=== PATIENT | female | born 1940 | race Caucasian/White ===

== ENCOUNTER → 2021-10-24 10:25 | Outpatient (CLI) | payer MEDICARE, OTHER, SELFPAY ==
[2021-10-24 10:56] LABS: Appearance Urine UA SL CLOUDY; Bilirubin Urine UA NEGATIVE (NEGATIVE); Color Urine UA YELLOW; Glucose Urine UA NEGATIVE (Negative); Ketones Urine UA NEGATIVE (NEGATIVE); Leukocyte Esterase Urine UA 1+ (NEGATIVE); Nitrite Urine UA NEGATIVE (Negative); Occult Blood Urine UA TRACE-INTACT (Negative); Protein Urine UA 1+ (Negative); Specific Gravity Urine UA 1.015 (1.000-1.035); Urobilinogen Urine UA 0.2 E.U./dL (0.2)
[2021-10-24 11:56] LABS: Bacteria Urine Many (>30); Culture Indicated Urine Specimen Cultured; RBC Urine 1-5/HPF (0-5/HPF); Squamous Epithelial Cell Urine 1-5 /HPF (0-5/HPF); WBC Urine 30-100/HPF (0-5/HPF)
== END ==
PROVIDERS: Obstetrics & Gynecology; PCP Family Medicine; Referring Provider Specialist; Visit Provider Specialist
DX: N39.0 Urinary tract infection, site not specified (principal)
CPT/HCPCS: 81003; 81015; 87077; 87086; 87186

== ENCOUNTER → 2022-01-18 12:04 | Outpatient (CLI) | payer MEDICARE, OTHER, SELFPAY ==
[2022-01-18 12:51] LABS: Bilirubin Urine UA NEGATIVE (NEGATIVE); Color Urine UA YELLOW; Glucose Urine UA NEGATIVE (Negative); Ketones Urine UA TRACE (NEGATIVE); Leukocyte Esterase Urine UA 1+ (NEGATIVE); Nitrite Urine UA NEGATIVE (Negative); Occult Blood Urine UA 1+ (Negative); Protein Urine UA NEGATIVE (Negative); Urobilinogen Urine UA 0.2 E.U./dL (0.2)
[2022-01-18 12:59] LABS: Appearance Urine UA Slightly Cloudy; RBC Urine 1-5/HPF (0-5/HPF); Squamous Epithelial Cell Urine 1-5 /HPF (0-5/HPF); WBC Urine 10-30/HPF (0-5/HPF); pH Urine UA 5.5 (4.5-8.0)
[2022-01-18 13:00] LABS: Amorphous Sediment Urine 1+; Bacteria Urine Many (>30); Mucus Urine 1+ (Negative)
== END ==
PROVIDERS: PCP Family Medicine; Visit Provider Obstetrics & Gynecology
DX: N36.2 Urethral caruncle (principal); R30.9 Painful micturition, unspecified
CPT/HCPCS: 81001; 87077; 87086; 87186

== ENCOUNTER → 2022-04-16 10:39 | Outpatient (CLI) | payer MEDICARE, OTHER, SELFPAY | PROVIDERS: PCP Family Medicine; Visit Provider Specialist | DX: R30.0 Dysuria (principal) | CPT/HCPCS: 87077; 87086; 87186 ==

== ENCOUNTER → 2022-04-24 15:48 | Outpatient (CLI) | payer MEDICARE, OTHER, SELFPAY ==
[2022-04-24 16:30] LABS: Appearance Urine UA CLEAR; Bilirubin Urine UA NEGATIVE (NEGATIVE); Color Urine UA YELLOW; Glucose Urine UA NEGATIVE (Negative); Ketones Urine UA NEGATIVE (NEGATIVE); Leukocyte Esterase Urine UA 2+ (NEGATIVE); Nitrite Urine UA NEGATIVE (Negative); Occult Blood Urine UA NEGATIVE (Negative); Protein Urine UA TRACE (Negative); Urobilinogen Urine UA 0.2 E.U./dL (0.2)
[2022-04-24 16:43] LABS: Bacteria Urine Many (>30); Culture Indicated Urine Specimen Cultured; RBC Urine None Seen (0-5/HPF); Squamous Epithelial Cell Urine 10-30 /HPF (0-5/HPF); WBC Urine 5-10/HPF (0-5/HPF)
== END ==
PROVIDERS: PCP Family Medicine; Referring Provider Specialist; Visit Provider Specialist
DX: N39.0 Urinary tract infection, site not specified (principal)
CPT/HCPCS: 81001; 87086

== ENCOUNTER → 2022-10-30 14:45 | Outpatient (CLI) | payer MEDICARE, OTHER, SELFPAY ==
--- NOTE | 2022-10-30 14:46 | DI.RAD.S_ITS ---
PROCEDURE: XR LUMBAR SPINE MIN 4V INDICATIONS: low back pain TECHNIQUE: 5 views of the lumbar spine were acquired, including bilateral oblique views. COMPARISON: None. FINDINGS: Suboptimal evaluation due to body habitus and bowel gas. Bones: 5 nonrib-bearing vertebrae are present. Convex right rotoscoliosis, Cox angle of 50?. Suspect grade 1 anterolisthesis of L5 on S1. Moderate disc height loss at all levels, and extensive facet arthrosis. Soft tissues: Overlying bowel gas pattern is normal. No suspicious soft tissue calcifications. Oblique images: No pars defects. IMPRESSION: Suboptimal evaluation due to body habitus and bowel gas. Severe right scoliosis. Moderate disc height loss and severe facet arthrosis at all levels. Dictated by: Nirav Michael M.D. on 10/30/2022 at 17:09 Approved by: Nirav Michael M.D. on 10/30/2022 at 17:10
== END ==
PROVIDERS: PCP Family Medicine; Referring Provider Anesthesiology; Visit Provider Anesthesiology
DX: M47.816 Spondylosis without myelopathy or radiculopathy, lumbar region (principal); M41.9 Scoliosis, unspecified; M16.0 Bilateral primary osteoarthritis of hip; M54.50 Low back pain, unspecified; M25.552 Pain in left hip; G89.29 Other chronic pain
CPT/HCPCS: 72110; 99214

== ENCOUNTER → 2022-11-19 12:59 | Outpatient (CLI) | payer MEDICARE, OTHER, SELFPAY ==
--- NOTE | 2022-11-19 13:01 | DI.MRI.S_ITS ---
PROCEDURE: MR LUMBAR SPINE WO CON INDICATIONS: Chronic LBP with radiculopathy TECHNIQUE: Noncontrast sagittal T1 spin echo and T2 fast echo, sagittal STIR, and T2 fast spin echo through the lumbar spine. In cases with scoliosis, additional coronal T2 fast spin echo may be performed. COMPARISON: None. FINDINGS: Image quality: Excellent. Alignment and Curvature: Severe dextroscoliosis of the lumbar spine with the right apex at L3 and a Cox angle of 52 degrees is seen with compensatory levoscoliosis of the thoracic spine with a Cox angle of 24 degrees. Bone Marrow: Marrow is of normal overall signal. No acute vertebral body compression fractures. Spinal Cord: Conus medullaris terminates at the L1 level. Visualized cord demonstrates normal signal and size. Paraspinous Soft Tissues: No paravertebral masses. Multilevel diffuse disc bulges with disc osteophytes causing foraminal stenosis at multiple levels is seen but is difficult to accurately evaluate given the degree of scoliosis. There is no significant central canal stenosis. The visualized cord has no abnormal signal. IMPRESSION: 1. No acute abnormality. No compression fracture. 2. No significant central canal stenosis. 3. No abnormal cord signal of the visualized cord. 4. Multilevel diffuse disc bulges with endplate degenerative changes worst at L2-3. Dictated by: Britton Fam M.D. on 11/19/2022 at 15:01 Approved by: Britton Fam M.D. on 11/19/2022 at 15:10
== END ==
PROVIDERS: PCP Family Medicine; Referring Provider Anesthesiology; Visit Provider Anesthesiology
DX: M51.16 Intervertebral disc disorders with radiculopathy, lumbar region; M47.26 Other spondylosis with radiculopathy, lumbar region
CPT/HCPCS: 72148

== ENCOUNTER 2022-11-27 08:27 | Outpatient (CLI) | payer MEDICARE, OTHER, SELFPAY ==
[2022-11-27] VITALS (7 sets, daily range): BP systolic 158–177; BP diastolic 75–97; PULSE 62–65; RESP 18–24; TEMP 36.4; O2SAT 97–99
--- NOTE | 2022-11-27 08:28 | DI.RAD.S_ITS ---
PROCEDURE: PAIN L/S FACET INJ/BLK 1ST GIANCARLO COMPARISON: [facility], CR, XR LUMBAR SPINE MIN 4V, 10/30/2022, 14:53. [facility], MR, MR LUMBAR SPINE WO CON, 11/19/2022, 13:32. INDICATIONS: SPONDYLOSIS FINDINGS: Fluoroscopic spot filming was performed to verify placement of spinal needles on both sides at the L2, L3, and L4 levels, as labeled on the films. Appropriate location of the needle tips was confirmed by injection of iodinated contrast. IMPRESSION: Intraprocedural examination demonstrating appropriate positions of the needles. Dictated by: Curt Fenton M.D. on 11/27/2022 at 12:17 Approved by: Curt Fenton M.D. on 11/27/2022 at 12:18
[2022-11-27] MEDS: IOPAMIDOL 15 ML VIAL 3 ML INJ (08:57)
[2022-11-27] MEDS: BUPIVACAINE 0.5% (PF) 10 ML VIAL 5 ML INJ (08:58)
--- NOTE | 2022-11-27 13:55 | P.PCN_ITS ---
Date/Time/Diagnoses Date of procedure: 11/27/22 Time of procedure: 09:00 Procedure Notes Physician: Regan Wolf Total Fluoroscopy time (seconds): 33 Total sedation minutes: 0 Procedure in detail & Post-procedure care: Bilateral L2, 3, 4 Lumbar Medial Branch Blocks Indications: Vicki is presenting for treatment of lumbar spondylosis with low back pain. Preoperative diagnosis: Bilateral lumbar spondylosis Postoperative diagnosis: Same Pre-procedure History: Patient demonstrates today moderate to severe non- radicular back pain without neurologic deficit aggravated by hyperextension yes Back pain greater than leg pain? yes Patient today has tenderness over the suspected joint(s) yes History of post-traumatic injury? no Hypertrophic arthropathy yes Back pain associated with suspected motion segment instability, hypermobility or pseudoarthrosis no F Pre-testing pain score (VAS): 7/10 Focused Examination: Ax3 Mood and affect are normal Vital Signs: VSS Consent: Following review of allergies and potential side effects/complications, including, but not necessarily limited to, infection, allergic reaction, local tissue breakdown, stroke, temporary or permanent nerve injury, paralysis, and possible , the patient indicated that they understood and agreed to proceed.? An informed consent document was signed by the patient, witnessed by a nurse and placed in the patient's chart.? Additionally, other treatment options including medications and physical therapy were reviewed with the patient. All questions were answered. Site was then marked. Anesthesia: Local Position: Prone Monitoring: NIBP, Pulse oximetry, 3 lead EKG Needle used: 22G 3.5 inch spinal needle Contrast: Isovue 300M Injectate: 0.5% bupivacaine 1 mL per site Procedure: The patient was brought into the procedure room and positioned into the prone position. Skin was prepped with a Chloraprep solution, allowed to air dry, and then draped in sterile fashion.? The right L3-4 and L4-5 facet joints were visually identified with fluoroscopy. Lidocaine 1% was used to anesthetize the skin over each target destination with a 25ga needle. A 25 ga, 3.5 inch spinal needle was advanced to the location of the medial branch at the junction of the superior articular process and the transverse process at right L2, 3, 4 using intermittent fluoroscopy in the AP view. Isovue 300M contrast 0.2ml was injected at each level outlining the medial borders for each level in the AP and lateral views. There was no evidence of vascular or intrathecal uptake. The above injectate was slowly injected at each target destination. The left L3-4 and L4-5 facet joints were visually identified with fluoroscopy. Lidocaine 1% was used to anesthetize the skin over each target destination with a 25ga needle. A 22 ga, 3.5 inch spinal needle was advanced to the location of the medial branch at the junction of the superior articular process and the transverse process at left L2, 3, 4 using intermittent fluoroscopy in the AP view. Isovue 300M contrast 0.2ml was injected at each level outlining the medial borders for each level in the AP and lateral views. There was no evidence of vascular or intrathecal uptake. The above injectate was slowly injected at each target destination. At the end of the procedure the needles were withdrawn and Band-Aids were applied for a dressing. At the end of the procedure the needles were withdrawn and Band-Aids were applied for a dressing. Post Procedure: Patient was taken to the recovery and monitored. The patient was provided a Pain Log to continue to record the patient's response to the target- specific procedure prior to the patient's follow-up visit with the referring physician. Patient was stable upon discharge. Detailed post procedure instructions were provided. Patient was asked to call in the event of worsening pain, fever, weakness, numbness or bladder or bowel incontinence. Postoperatively, today patient demonstrates the following changes with hypere xtension and with tenderness over the suspected joint(s). Provacative testing using the Ellis's facet loading test Right side Left side Directly before the block ?VAS (0-10) = 7/10 VAS (0-10) = 7/10 5 minutes after the block VAS (0-10) = 0/10 VAS (0-10) = 0/10 Percentage relief obtained with this diagnostic block 100 % 100 % Any improved physical functioning directly after the blocks? Range of motion Based on the medial branches blocked today, if the patient meets insurance criteria for radiofrequency, the treatment should result in the denervation of the bilateral L3-4 and L4-5 facet joint nerves. We would expect to denervate a total of 4 facets during the radiofrequency ablation.
== END 2022-11-27 09:25 | disposition home or self-care (01) ==
LOC: RAD 08:28
PROVIDERS: PCP Family Medicine; Referring Provider Anesthesiology; Visit Provider Anesthesiology
DX: M47.816 Spondylosis without myelopathy or radiculopathy, lumbar region (principal)
CPT/HCPCS: 64493; 64494

== ENCOUNTER 2022-12-18 10:12 | Outpatient (CLI) | payer MEDICARE, OTHER, SELFPAY ==
[2022-12-18] VITALS (7 sets, daily range): BP systolic 144–171; BP diastolic 77–86; PULSE 59–70; RESP 16–24; TEMP 36; O2SAT 96–99
--- NOTE | 2022-12-18 10:13 | DI.RAD.S_ITS ---
PROCEDURE: PAIN L/S FACET INJ/BLK 1ST GIANCARLO COMPARISON: [facility], , PAIN L/S FACET INJ/BLK 1ST GIANCARLO, 11/27/2022, 8:55. INDICATIONS: SPONDYLOSIS FINDINGS: Fluoroscopic spot filming was performed to verify placement of spinal needles on both sides at the L2, L3, and L4 levels, as labeled on the films. Appropriate location of the needle tips was confirmed by injection of iodinated contrast. IMPRESSION: Intraprocedural examination demonstrating appropriate positions of the needles. Dictated by: Curt Fenton M.D. on 12/18/2022 at 12:18 Approved by: Curt Fenton M.D. on 12/18/2022 at 12:18
[2022-12-18] MEDS: LIDOCAINE 2% INJ MDV 20ML 20 ML INJ (10:43)
[2022-12-18] MEDS: IOPAMIDOL 15 ML VIAL 3 ML INJ (10:43)
--- NOTE | 2022-12-18 11:45 | P.PCN_ITS ---
Date/Time/Diagnoses Date of procedure: 12/18/22 Time of procedure: 10:30 Procedure Notes Physician: Regan Wolf Total Fluoroscopy time (seconds): 22 Total sedation minutes: 0 Procedure in detail & Post-procedure care: Bilateral L2, 3, 4 Lumbar Medial Branch Blocks Indications: Vicki is presenting for treatment of lumbar spondylosis with low back pain. Preoperative diagnosis: Bilateral lumbar spondylosis Postoperative diagnosis: Same Pre-procedure History: Patient demonstrates today moderate to severe non- radicular back pain without neurologic deficit aggravated by hyperextension yes Back pain greater than leg pain? yes Patient today has tenderness over the suspected joint(s) yes History of post-traumatic injury? no Hypertrophic arthropathy yes Back pain associated with suspected motion segment instability, hypermobility or pseudoarthrosis no F Pre-testing pain score (VAS): 7/10 Focused Examination: Ax3 Mood and affect are normal Vital Signs: VSS Consent: Following review of allergies and potential side effects/complications, including, but not necessarily limited to, infection, allergic reaction, local tissue breakdown, stroke, temporary or permanent nerve injury, paralysis, and possible , the patient indicated that they understood and agreed to proceed.? An informed consent document was signed by the patient, witnessed by a nurse and placed in the patient's chart.? Additionally, other treatment options including medications and physical therapy were reviewed with the patient. All questions were answered. Site was then marked. Anesthesia: Local Position: Prone Monitoring: NIBP, Pulse oximetry, 3 lead EKG Needle used: 22G 3.5 inch spinal needle Contrast: Isovue 300M Injectate: 2% lidocaine 1 mL per site Procedure: The patient was brought into the procedure room and positioned into the prone position. Skin was prepped with a Chloraprep solution, allowed to air dry, and then draped in sterile fashion.? The right L3-4 and L4-5 facet joints were visually identified with fluoroscopy. Lidocaine 1% was used to anesthetize the skin over each target destination with a 25ga needle. A 22 ga, 3.5 inch spinal needle was advanced to the location of the medial branch at the junction of the superior articular process and the transverse process at right L2, 3, 4 using intermittent fluoroscopy in the AP view. Isovue 300M contrast 0.2ml was injected at each level outlining the medial borders for each level in the AP and lateral views. There was no evidence of vascular or intrathecal uptake. The above injectate was slowly injected at each target destination. The left L3-4 and L4-5 facet joints were visually identified with fluoroscopy. Lidocaine 1% was used to anesthetize the skin over each target destination with a 25ga needle. A 22 ga, 3.5 inch spinal needle was advanced to the location of the medial branch at the junction of the superior articular process and the transverse process at left L2, using intermittent fluoroscopy in the AP view. Isovue 300M contrast 0.2ml was injected at each level outlining the medial borders for each level in the AP and lateral views. There was no evidence of vascular or intrathecal uptake. The above injectate was slowly injected at each target destination. At the end of the procedure the needles were withdrawn and Band-Aids were applied for a dressing. At the end of the procedure the needles were withdrawn and Band-Aids were applied for a dressing. Post Procedure: Patient was taken to the recovery and monitored. The patient was provided a Pain Log to continue to record the patient's response to the target- specific procedure prior to the patient's follow-up visit with the referring physician. Patient was stable upon discharge. Detailed post procedure instructions were provided. Patient was asked to call in the event of worsening pain, fever, weakness, numbness or bladder or bowel incontinence. Postoperatively, today patient demonstrates the following changes with hyperextension and with tenderness over the suspected joint(s). Provacative testing using the Ellis's facet loading test Right side Left side Directly before the block ?VAS (0-10) = 7/10 VAS (0-10) = 7/10 5 minutes after the block VAS (0-10) = 2/10 VAS (0-10) = 2/10 Percentage relief obtained with this diagnostic block 71% 71% Any improved physical functioning directly after the blocks? ROM Based on the medial branches blocked today, if the patient meets insurance criteria for radiofrequency, the treatment should result in the denervation of the bilateral L3-4 and L4-5 facet joint nerves. We would expect to denervate a total of 4 facets during the radiofrequency ablation.
== END 2022-12-18 11:10 | disposition home or self-care (01) ==
PROVIDERS: PCP Family Medicine; Referring Provider Anesthesiology; Visit Provider Anesthesiology
DX: M47.816 Spondylosis without myelopathy or radiculopathy, lumbar region (principal)
CPT/HCPCS: 64493; 64494

== ENCOUNTER 2023-03-19 10:42 | Outpatient (CLI) | payer MEDICARE, OTHER, SELFPAY ==
[2023-03-19] VITALS (13 sets, daily range): BP systolic 140–161; BP diastolic 70–91; PULSE 54–58; RESP 18–25; TEMP 36; O2SAT 97–99
--- NOTE | 2023-03-19 10:44 | DI.RAD.S_ITS ---
PROCEDURE: PAIN L/S MED/LAT N RFA BILAT INDICATIONS: SPONDYLOSIS COMPARISON: [facility], , PAIN L/S FACET INJ/BLK 1ST GIANCARLO, 12/18/2022, 10:43. FINDINGS: Fluoroscopic spot filming was performed to verify placement of spinal needles on both sides at the L2, L3, and L4 levels, as labeled on the films. IMPRESSION: Images during rhizotomy within normal limits. Dictated by: Curt Fenton M.D. on 03/19/2023 at 15:28 Approved by: Curt Fenton M.D. on 03/19/2023 at 15:29
--- NOTE | 2023-03-19 11:00 | P.PCN_ITS ---
Date/Time/Diagnoses Date of procedure: 03/19/23 Time of procedure: 11:00 Procedure Notes Physician: Regan Wolf Total Fluoroscopy time (seconds): 45 Total sedation minutes: 43 Procedure in detail & Post-procedure care: Bilateral L2, 3, 4 Lumbar Medial Branch Radio Frequency Ablation Indications: Vicki presents for treatment of lumbar spondylosis with low back pain. Preoperative diagnosis: Lumbar spondylosis Postoperative diagnosis: Same Focused Examination: Ax3 Mood and affect are normal Vital Signs: VSS ASA: 2 Consent: Following review of allergies and potential side effects/complications, including, but not necessarily limited to, infection, allergic reaction, local tissue breakdown, stroke, temporary or permanent nerve injury, paralysis, and possible , the patient indicated that they understood and agreed to proceed.? An informed consent document was signed by the patient, witnessed by a nurse and placed in the patient's chart.? Additionally, other treatment options including medications and physical therapy were reviewed with the patient. All questions were answered. Site was then marked. Position: Prone Monitoring: NIBP, Pulse oximetry, 3 lead EKG Needle used: 18 guage, 100 mm, 10 mm active tip Anesthesia: Local with IV sedation. After review of previous anesthetic history and IV conscious sedation, the patient was deemed safe to proceed with today's procedure with IV conscious sedation. IV sedation was accomplished with midazolam 0.5 mg administered by the RN after order by Dr. Wolf. Sedation was titrated to patient comfort during the course of the procedure. Patient remained responsive to all verbal commands. Procedure: The patient was brought into the procedure room and positioned into the prone position. Skin was prepped with a Chloraprep solution, allowed to air dry, and then draped in sterile fashion.? The right L3-4 and L4-5 facet joints were visually identified with fluoroscopy. Lidocaine 1% was used to anesthetize the skin over each target destination with a 25ga needle. An 18 ga, 100 mm RFA needle with a 10 mm active tip was advanced to the location of the medial branch at the junction of the superior articular process and the transverse process at L3,4,5 using intermittent fluoroscopy in the oblique view with caudal tilt. AP and lateral radiographs were taken to confirm proper needle placement. No paresthesias were noted. The stylet was removed and the radiofrequency probe was inserted through the cannula. Each level was individually tested.? Motor stimulation up to 2V elicited multifidus twitching in the lumbar spine. There was no motor stimulation in the lower extremities. After negative aspiration, 1ml of 2% lidocaine was injected at each of the levels and radiofrequency denervation carried out using 80 degrees Celsius for 90 seconds. The needles were then rotated 90 degrees and a second ablation was performed at 80 degrees Celsius for 90 seconds. Next, the left L3-4 and L4-5 facet joints were visually identified with fluoroscopy. Lidocaine 1% was used to anesthetize the skin over each target destination with a 25ga needle. An 18 ga, 100 mm RFA needle with a 10 mm active tip was advanced to the location of the medial branch at the junction of the superior articular process and the transverse process at L3,4,5 using intermittent fluoroscopy in the oblique view with caudal tilt. AP and lateral radiographs were taken to confirm proper needle placement. No paresthesias were noted. The stylet was removed and the radiofrequency probe was inserted through the cannula. Each level was individually tested. Motor stimulation up to 2V elicited multifidus twitching in the lumbar spine. There was no motor stimulation in the lower extremities. After negative aspiration, 1ml of 2% lidocaine was injected at each of the levels and radiofrequency denervation carried out using 80 degrees Celsius for 90 seconds. The needles were then rotated 90 degrees and a second ablation was performed at 80 degrees Celsius for 90 seconds. After ablation, a mixture of 10 mg dexamethasone with 0.5% bupivacaine 5 mL was injected in equal amounts among the sites (1 mL per site). At the end of the procedure the needles were withdrawn and Band-Aids were applied for a dressing. This procedure is expected to denervate the bilateral L3-4 and L4-5 facet joints. Post Procedure: Patient was taken to the recovery and monitored. The patient was provided a Pain Log to continue to record the patient's response to the target- specific procedure prior to the patient's follow-up visit with the referring physician. Patient was stable upon discharge. Detailed post procedure instructions were provided. Patient was asked to call in the event of worsening pain, fever, weakness, numbness or bladder or bowel incontinence. Complications: None
[2023-03-19] MEDS: MIDAZOLAM 2 MG/2 ML VIAL 0.5 MG IV (11:10)
[2023-03-19] MEDS: LIDOCAINE 2% INJ MDV 20ML 5 ML INJ (11:13)
[2023-03-19] MEDS: DEXAMETHASONE 10 MG/ML VIAL INJ (11:14)
[2023-03-19] MEDS: BUPIVACAINE 0.5% (PF) 10 ML VIAL 5 ML INJ (11:14)
== END 2023-03-19 12:10 | disposition home or self-care (01) ==
LOC: RAD 10:44
PROVIDERS: PCP Family Medicine; Referring Provider Anesthesiology; Visit Provider Anesthesiology
DX: M47.816 Spondylosis without myelopathy or radiculopathy, lumbar region (principal)
CPT/HCPCS: 64635; 64636; 99152; 99153; J1100; J2250

== ENCOUNTER → 2023-04-08 12:07 | Outpatient (CLI) | payer MEDICARE, OTHER, SELFPAY | PROVIDERS: PCP Family Medicine; Referring Provider Internal Medicine Critical Care Medicine; Visit Provider Internal Medicine Critical Care Medicine | DX: R06.02 Shortness of breath (principal); J98.8 Other specified respiratory disorders | CPT/HCPCS: 94060; 94726; 94729 ==

== ENCOUNTER → 2023-12-17 16:45 | Outpatient (CLI) | payer MEDICARE, OTHER, SELFPAY | PROVIDERS: PCP Family Medicine; Visit Provider Obstetrics & Gynecology | DX: R31.9 Hematuria, unspecified (principal); R82.998 Other abnormal findings in urine | CPT/HCPCS: 87077; 87086; 87186 ==